=== PATIENT | female | born 1960 | race Caucasian/White ===

== ENCOUNTER 2019-06-05 12:55 | Emergency (ER) | payer OTHER ==
--- NOTE | 2019-06-05 13:53 | RAD REPORT ---
EXAM DESCRIPTION: RAD - Ankle Left 3 View -06/05/2019 1:48 pm CLINICAL HISTORY: Left ankle pain status post injury FINDINGS: No fracture or dislocation is seen. Soft tissue swelling
--- NOTE | 2019-06-05 14:00 | EDPHYS ---
Physician Documentation [facility] Name: Bianca Shrestha Age: 58 yrs Sex: Female : 1960 Arrival Date: 06/05/2019 Time: 12:59 Bed 12 Private MD: None, None ED Physician Joseph Jackson HPI: 06/05 13:57 This 58 yrs old Female presents to ER via Ambulatory with complaints of Ankle pm1 Injury. 13:57 The patient presents with pain, that is acute. The complaints affect the left ankle. pm1 13:57 Onset: The symptoms/episode began/occurred this morning. Context: The problem was pm1 sustained outdoors, resulted from a mis-step by the patient, The mechanism of injury involved inversion of the affected ankle. The patient can fully bear weight on the affected extremity. the patient is able to ambulate. Associated signs and symptoms: The patient has no apparent associated signs or symptoms, Pertinent negatives: calf tenderness, numbness, tingling. Modifying factors: The symptoms are alleviated by nothing, the symptoms are aggravated by weight bearing. Severity of symptoms: in the emergency department the symptoms are actually worse. Historical: - Allergies: 13:24 Sulfa (Sulfonamide Antibiotics); aa5 - PMHx: 13:24 Asthma; Thyroid problem; Hyperlipidemia; Depression; aa5 - PSHx: 13:24 eye; endometrial ablation; tumor removed from abdomen as ; aa5 - Immunization history:: Adult Immunizations unknown. - Social history:: Smoking status: Patient/guardian denies using tobacco. - Ebola Screening: : No symptoms or risks identified at this time. ROS: 13:57 Constitutional: Negative for fever, chills, and weight loss, Neck: Negative for injury, pm1 pain, and swelling, Cardiovascular: Negative for chest pain, palpitations, and edema, Respiratory: Negative for shortness of breath, cough, wheezing, and pleuritic chest pain, Abdomen/GI: Negative for abdominal pain, nausea, vomiting, diarrhea, and constipation, Back: Negative for injury and pain. 13:57 Skin: Negative for injury, rash, and discoloration, Neuro: Negative for headache, weakness, numbness, tingling, and seizure. 13:57 MS/extremity: Positive for pain, of the left lateral ankle, Negative for decreased range of motion, deformity. Exam: 13:57 Constitutional: This is a well developed, well nourished patient who is awake, alert, pm1 and in no acute distress. Head/Face: Normocephalic, atraumatic. Chest/axilla: Normal chest wall appearance and motion. Nontender with no deformity. No lesions are appreciated. Cardiovascular: Regular rate and rhythm with a normal S1 and S2. No gallops, murmurs, or rubs. Normal PMI, no JVD. No pulse deficits. Respiratory: Lungs have equal breath sounds bilaterally, clear to auscultation and percussion. No rales, rhonchi or wheezes noted. No increased work of breathing, no retractions or nasal flaring. Back: No spinal tenderness. No costovertebral tenderness. Full range of motion. Skin: Warm, dry with normal turgor. Normal color with no rashes, no lesions, and no evidence of cellulitis. 13:57 Musculoskeletal/extremity: Extremities: grossly normal except: noted in the left lateral ankle: swelling, tenderness, There is no evidence of decreased ROM, deformity, ecchymosis. 13:57 Neuro: Orientation: is normal, Motor: is normal, moves all fours. Vital Signs: 13:24 BP 136 / 85; Pulse 76; Resp 16 S; Temp 98.9(TE); Pulse Ox 98% on R/A; Weight 79.38 kg aa5 (R); Height 5 ft. 2 in. (157.48 cm) (R); Pain 5/10; 13:24 Body Mass Index 32.01 (79.38 kg, 157.48 cm) aa5 MDM: 13:25 Patient medically screened. pm1 13:58 Data reviewed: vital signs. Counseling: I had a detailed discussion with the patient pm1 and/or guardian regarding: the historical points, exam findings, and any diagnostic results supporting the discharge/admit diagnosis, radiology results, the need for outpatient follow up, to return to the emergency department if symptoms worsen or persist or if there are any questions or concerns that arise at home. 14:00 ED course: Patient offered prescription pain medications. patient refused, will use pm1 ibuprofen or Tylenol at home. 06/05 13:25 Order name: Ankle Left 3 View XRAY; Complete Time: 13:55 pm1 06/05 13:58 Order name: Crutches; Complete Time: 14:21 pm1 06/05 13:58 Order name: Aircast Ankle Splint; Complete Time: 14:21 pm1 Administered Medications: No medications were administered Disposition: 06/05/19 13:59 Discharged to Home. Impression: Pain in left ankle and joints of left foot. - Condition is Stable. - Discharge Instructions: Cast or Splint Care, Adult, Crutch Use, Ankle Pain. - Medication Reconciliation Form, Thank You Letter, Antibiotic Education, Prescription Opioid Use form. - Follow up: Emergency Department; When: As needed; Reason: Worsening of condition. Follow up: Private Physician; When: 2 - 3 days; Reason: Recheck today's complaints, Continuance of care, Re-evaluation by your physician. - Problem is new. - Symptoms have improved. Addendum: 06/06/2019 18:18 Co-signature as Attending Physician, Joseph Jackson MD. g s Signatures: Dispatcher [employer] EDMS Ting Green RN RN aa5 Ole Moss, [employer] DEVELOPER [employer] DEVELOPER pm1 Joseph Jackson MD MD Corrections: (The following items were deleted from the chart) 06/05 14:21 13:59 06/05/2019 13:59 Discharged to Home. Impression: Pain in left ankle and joints of aa5 left foot. Condition is Stable. Forms are Medication Reconciliation Form, Thank You Letter, Antibiotic Education, Prescription Opioid Use. Follow up: Emergency Department; When: As needed; Reason: Worsening of condition. Follow up: Private Physician; When: 2 - 3 days; Reason: Recheck today's complaints, Continuance of care, Re-evaluation by your physician. Problem is new. Symptoms have improved. pm1
--- NOTE | 2019-06-05 14:00 | ER ---
Nurse's Notes [facility] Name: Bianca Shrestha Age: 58 yrs Sex: Female : 1960 Arrival Date: 06/05/2019 Time: 12:59 Bed 12 Private MD: None, None Diagnosis: Pain in left ankle and joints of left foot Presentation: 06/05 13:22 Presenting complaint: Patient states: "I rolled my left ankle this morning". Transition aa5 of care: patient was not received from another setting of care. Onset of symptoms was June 05, 2019. Risk Assessment: Do you want to hurt yourself or someone else? Patient reports no desire to harm self or others. Initial Sepsis Screen: Does the patient meet any 2 criteria? No. Patient's initial sepsis screen is negative. Does the patient have a suspected source of infection? No. Patient's initial sepsis screen is negative. Care prior to arrival: None. 13:22 Method Of Arrival: Ambulatory aa5 13:22 Acuity: SILVIO 4 aa5 Triage Assessment: 13:22 General: Appears uncomfortable, Behavior is calm, cooperative. 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 - Social history:: Smoking status: Patient/guardian denies using tobacco. - Ebola Screening: : No symptoms or risks identified at this time. Screenin:35 Abuse screen: Denies threats or abuse. Nutritional screening: No deficits noted. aa5 Tuberculosis screening: No symptoms or risk factors identified. Fall Risk Fall in past 12 months (25 points). Total Howard Fall Scale indicates Low Risk Score (25-44 pts). Assessment: 13:30 General: Appears uncomfortable, Behavior is calm, cooperative. Pain: Complains of pain aa5 in left ankle. Neuro: Level of Consciousness is awake, alert, obeys commands, Oriented to person, place, time, situation. Cardiovascular: Patient's skin is warm and dry. Respiratory: Airway is patent Respiratory effort is even, unlabored, Respiratory pattern is regular, symmetrical. GI: No signs and/or symptoms were reported involving the gastrointestinal system. : No signs and/or symptoms were reported regarding the genitourinary system. EENT: No signs and/or symptoms were reported regarding the EENT system. Derm: Skin is pink, warm \\T\\ dry. Musculoskeletal: Reports pain in left ankle. 14:15 Reassessment: air cast ankle splint applied to left ankle . aa5 Vital Signs: 13:24 BP 136 / 85; Pulse 76; Resp 16 S; Temp 98.9(TE); Pulse Ox 98% on R/A; Weight 79.38 kg aa5 (R); Height 5 ft. 2 in. (157.48 cm) (R); Pain 5/10; 13:24 Body Mass Index 32.01 (79.38 kg, 157.48 cm) aa5 ED Course: 12:59 Patient arrived in ED. dp 12:59 None, None is Private Physician. dp 13:22 Triage completed. aa5 13:22 Arm band placed on. aa5 13:22 Patient has correct armband on for positive identification. aa5 13:24 Ting Green RN is Primary Nurse. aa5 13:25 Ole Moss NP is PHCP. pm1 13:25 Joseph Jackson MD is Attending Physician. pm1 13:49 Ankle Left 3 View XRAY In Process Unspecified. EDMS 14:15 No provider procedures requiring assistance completed. Patient did not have IV access aa5 during this emergency room visit. Administered Medications: No medications were administered Outcome: 13:59 Discharge ordered by MD. pm1 14:18 Discharged to home ambulatory, with crutches. aa5 14:18 Condition: stable 14:18 Discharge instructions given to patient, Instructed on discharge instructions, follow up and referral plans. Demonstrated understanding of instructions, follow-up care. 14:21 Patient left the ED. aa5 Signatures: Dispatcher [employer] EDMS Ting Green RN RN aa5 Ole Moss NP [employer] pm1 Lj Roman dp
== END 2019-06-05 14:21 | disposition home or self-care (01) ==
LOC: ER 12:55
DX: M25.572 Pain in left ankle and joints of left foot (principal); Z88.2 Allergy status to sulfonamides
CPT/HCPCS: 99283

== ENCOUNTER 2020-02-20 16:35 | Emergency (ER) | payer BC, OTHER ==
[2020-02-20] MEDS ORDERED: METHYLPREDNISOLONE 125 MG INJ ONE (17:10)
--- NOTE | 2020-02-20 17:49 | RAD REPORT ---
EXAM DESCRIPTION: Kaycee Single View02/20/2020 5:14 pm CLINICAL HISTORY: cough COMPARISON: none FINDINGS: The lungs appear clear of acute infiltrate. The heart is normal size IMPRESSION: No acute abnormalities displayed
--- NOTE | 2020-02-20 18:34 | EDPHYS ---
Physician Documentation [facility] Name: Bianca Shrestha Age: 59 yrs Sex: Female : 1960 Arrival Date: 02/20/2020 Time: 16:38 Bed 16 Private MD: ED Physician Gray Drake HPI: 02/19 17:03 This 59 yrs old Female presents to ER via Ambulatory with complaints of rn Cough, Fever. 17:03 The patient or guardian reports cough. Onset: The symptoms/episode began/occurred 3 rn week(s) ago. Severity of symptoms: At their worst the symptoms were moderate, in the emergency department the symptoms are unchanged. Modifying factors: The symptoms are alleviated by inhaler, the symptoms are aggravated by exertion. Associated signs and symptoms: Pertinent positives: fever, rhinorrhea, Pertinent negatives: chest pain, vomiting. The patient has experienced similar episodes in the past. Reports has asthma, has been coughing for 3 weeks, slowly getting worse, no hemoptysis, did telemedicine appt and told her probably had bronchitis. Reports similar to previous asthma attacks but lasting longer. Helps with inhaler but then coughs and is short of breath again.. 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 - Social history:: Smoking status: Patient denies any tobacco usage or history of. - Family history:: not pertinent. - Hospitalizations: : No recent hospitalization is reported. ROS: 17:03 Constitutional: + fever Eyes: Negative for injury, pain, redness, and discharge, ENT: + rn post-nasal drip Neck: Negative for injury, pain, and swelling, Cardiovascular: Negative for chest pain, palpitations, and edema, Respiratory: + cough and sob Abdomen/GI: Negative for abdominal pain, nausea, vomiting, diarrhea, and constipation, MS/Extremity: Negative for injury and deformity, Neuro: Negative for headache, numbness, tingling, and seizure. Exam: 17:03 Constitutional: This is a well developed, well nourished patient who is awake, alert, rn dry cough Head/Face: Normocephalic, atraumatic. Cardiovascular: Regular rate and rhythm Respiratory: Speaking full sentences, + audible wheezing with persistent cough, no retractions or tripod breathing Skin: Dry Neuro: Awake and alert, GCS 15 Vital Signs: 17:00 BP 144 / 74; Pulse 78; Resp 19 S; Pulse Ox 96% on R/A; jl7 17:41 Temp 100.3; jl7 18:30 BP 134 / 73; Pulse 75; Resp 18 S; Pulse Ox 97% on R/A; jl7 MDM: 16:49 Patient medically screened. rn 17:03 Differential Diagnosis: Bronchitis Influenza Upper Respiratory Infection Asthma rn Exacerbation Viral Syndrome Pneumonia. Data reviewed: vital signs, nurses notes. 17:54 Counseling: I had a detailed discussion with the patient and/or guardian regarding: the rn historical points, exam findings, and any diagnostic results supporting the discharge/admit diagnosis, radiology results, to return to the emergency department if symptoms worsen or persist or if there are any questions or concerns that arise at home. Response to treatment: the patient's symptoms have mildly improved after treatment, and as a result, I will discharge patient. Special discussion: I discussed with the patient/guardian in detail that at this point there is no indication for admission to the hospital. It is understood, however, that if the symptoms persist or worsen the patient needs to return immediately for re-evaluation. ED course: Pt with normal CXR, low grade fever and cough, most likely a viral syndrome, possible COVID-19, does not have to be hospitalized right now, no oxygen requirement, will dc home with steroids, continued inhaler use, and zithromax for bronchitis given 3 week worsening course. . 02/19 17:02 Order name: Flu; Complete Time: 18:26 rn 02/19 17:11 Order name: Misc. Lab Test rn 02/19 17:02 Order name: XRAY Chest (1 view); Complete Time: 17:53 rn 02/19 17:52 Order name: CORONAVIRUS EDMS Administered Medications: 17:30 Drug: SOLU-Medrol 125 mg Route: IM; Site: left ventrogluteal; jl7 18:00 Follow up: Response: No adverse reaction [facility] 18:45 Drug: Zithromax 500 mg Route: PO; 18:49 Follow up: Response: Medication administered at discharge. [facility] Disposition: 02/20/20 18:34 Discharged to Home. Impression: Unspecified asthma with (acute) exacerbation, Bronchitis, not specified as acute or chronic. - Condition is Stable. - Discharge Instructions: Acute Bronchitis, Adult, Asthma, Adult, Cough, Adult. - Prescriptions for Prednisone 20 mg Oral Tablet - take 3 tablet by ORAL route once daily for 5 days; 15 tablet. Zithromax Z- Rosalio 250 mg Oral Tablet - take 1 tablet by ORAL route as directed for 5 days Day 1 - take two (2) tablets one time. Day 2, 3, 4 , 5 take one (1) tablet once daily.; 6 tablet. Guaifenesin AC 10- 100 mg/5 mL Oral Liquid - take 10 milliliter by ORAL route every 4 hours As needed; 240 milliliter. - Medication Reconciliation Form, Thank You Letter, Antibiotic Education, Prescription Opioid Use form. - Follow up: Private Physician; When: As needed; Reason: Recheck today's complaints, Re-evaluation by your physician. - Problem is an ongoing problem. - Symptoms have improved. Signatures: Dispatcher [employer] [facility] Gray Drake MD MD rn Leal, Jahala, RN RN jl7 Corrections: (The following items were deleted from the chart) 17:52 17:12 Miscellaneous Test Lab ordered. [facility] 18:51 18:34 02/20/2020 18:34 Discharged to Home. Impression: Unspecified asthma with (acute) jl exacerbation; Bronchitis, not specified as acute or chronic. Condition is Stable. Discharge Instructions: Acute Bronchitis, Adult, Asthma, Adult, Cough, Adult. Prescriptions for Prednisone 20 mg Oral Tablet - take 3 tablet by ORAL route once daily for 5 days; 15 tablet, Zithromax Z-Rosalio 250 mg Oral Tablet - take 1 tablet by ORAL route as directed for 5 days Day 1 - take two (2) tablets one time. Day 2, 3, 4 , 5 take one (1) tablet once daily.; 6 tablet, Guaifenesin AC 10-100 mg/5 mL Oral Liquid - take 10 milliliter by ORAL route every 4 hours As needed; 240 milliliter. and Forms are Medication Reconciliation Form, Thank You Letter, Antibiotic Education, Prescription Opioid Use. Follow up: Private Physician; When: As needed; Reason: Recheck today's complaints, Re-evaluation by your physician. Problem is an ongoing problem. Symptoms have improved. rn
--- NOTE | 2020-02-20 18:34 | ER ---
Nurse's Notes [facility] Name: Bianca Shrestha Age: 59 yrs Sex: Female : 1960 Arrival Date: 02/20/2020 Time: 16:38 Bed 16 Private MD: Diagnosis: Unspecified asthma with (acute) exacerbation;Bronchitis, not specified as acute or chronic Presentation: 02/19 16:51 Chief complaint: Patient states: Cough and 99.5 temp x 3 weeks, MD live told her to [facility] come to ER because she might have bronchitis. Coronavirus screen: Surgical mask placed on patient. Patient moved to private room, placed in contact and droplet isolation with eye protection until further assessment. Patient reports a cough. Patient reports shortness of breath or difficulty breathing. Patient reports a measured and/or subjective temperature greater than 100.4F. Patient denies travel on a cruise ship or to a country the [facility] currently lists as an affected area. Patient denies contact with known and/or suspected case of COVID-19. Ebola Screen: No symptoms or risks identified at this time. Initial Sepsis Screen: Does the patient meet any 2 criteria? No. Patient's initial sepsis screen is negative. Does the patient have a suspected source of infection? No. Patient's initial sepsis screen is negative. Risk Assessment: Do you want to hurt yourself or someone else? Patient reports no desire to harm self or others. Onset of symptoms was January 30, 2020. Care prior to arrival: None. 16:51 Method Of Arrival: Ambulatory [facility] 16:51 Acuity: SILVIO 4 jl7 Triage Assessment: 16:57 General: Appears in no apparent distress. uncomfortable, Behavior is calm, cooperative, jl7 appropriate for age. Pain: Denies pain. Neuro: Level of Consciousness is awake, alert, obeys commands, Oriented to person, place, time, situation. Cardiovascular: Patient's skin is warm and dry. Respiratory: Reports shortness of breath at rest cough that is non-productive, Airway is patent Respiratory effort is even, unlabored, Respiratory pattern is regular, symmetrical. Derm: Skin is pink, warm \T\ dry. Historical: - Allergies: 16:57 Sulfa (Sulfonamide Antibiotics); jl7 - Home Meds: 16:57 levothyroxine oral [Active]; Bupropion Oral [Active]; Crestor oral oral [Active]; jl7 Albuterol Inhl [Active]; - PMHx: 16:57 Asthma; Depression; Hyperlipidemia; Thyroid problem; jl7 - PSHx: 16:57 eye; endometrial ablation; tumor removed from abdomen as ; jl7 - Immunization history:: Adult Immunizations. - Social history:: Smoking status: Patient denies any tobacco usage or history of. - Family history:: not pertinent. - Hospitalizations: : No recent hospitalization is reported. Screenin:00 Abuse screen: Denies threats or abuse. Denies injuries from another. Nutritional jl7 screening: No deficits noted. Tuberculosis screening: No symptoms or risk factors identified. 17:41 Fall Risk None identified. jl7 Assessment: 17:00 General: See triage assessment. jl7 02/20 09:19 Reassessment: Received PUI # from [facility] ([id number]). iw Vital Signs: 02/19 17:00 BP 144 / 74; Pulse 78; Resp 19 S; Pulse Ox 96% on R/A; jl7 17:41 Temp 100.3; jl7 18:30 BP 134 / 73; Pulse 75; Resp 18 S; Pulse Ox 97% on R/A; jl7 ED Course: 16:38 Patient arrived in ED. ag5 16:43 Alexsander Cintron, RN is Primary Nurse. jl7 16:49 Gray Drake MD is Attending Physician. rn 16:54 Triage completed. jl7 16:57 Arm band placed on right wrist. jl7 17:00 Patient has correct armband on for positive identification. Placed in gown. Bed in low jl7 position. Call light in reach. Side rails up X 1. 17:00 Pulse ox on. NIBP on. jl7 17:14 XRAY Chest (1 view) In Process Unspecified. EDMS 17:30 Flu and/or RSV swab sent to lab. COVID-19 swab wallk to lab. jl7 18:50 No provider procedures requiring assistance completed. Patient did not have IV access jl7 during this emergency room visit. Administered Medications: 17:30 Drug: SOLU-Medrol 125 mg Route: IM; Site: left ventrogluteal; jl7 18:00 Follow up: Response: No adverse reaction jl7 18:45 Drug: Zithromax 500 mg Route: PO; jl7 18:49 Follow up: Response: Medication administered at discharge. jl7 Outcome: 18:34 Discharge ordered by . rn 18:50 Discharged to home ambulatory. 7 18:50 Condition: stable 18:50 Discharge instructions given to patient, Instructed on discharge instructions, follow up and referral plans. medication usage, Demonstrated understanding of instructions, follow-up care, medications, Prescriptions given X 3. 18:51 Patient left the ED. jl7 Addendum: 02/23/2020 17:43 Addendum: Other Contacted pt regarding negative COVID-19 swab results. Pt advised to d m5 continue to monitor symptoms, to remain in isolation until fever free for 3 days or 7 days for the onset of symptoms and to return to the ED for worsening symptoms. Signatures: Dispatcher [employer] EDMS Tracie Ogden, RN RN dm5 Matilda Burch RN Gray Coffey MD MD rn Leal, Jahala, RN RN jl7 Krissy Michaels 5
[2020-02-20] MEDS ORDERED: AZITHROMYCIN 250 MG TAB ONE (18:43)
[2020-02-20 18:57] VITALS: TEMP 100.3
[2020-02-20 18:58] VITALS: BP 134/73; O2SAT 97
== END 2020-02-20 18:51 | disposition home or self-care (01) ==
LOC: ER 16:35
DX: J45.901 Unspecified asthma with (acute) exacerbation (principal); J40 Bronchitis, not specified as acute or chronic; Z03.818 Encounter for observation for suspected exposure to other biological agents ruled out; Z88.2 Allergy status to sulfonamides; E07.9 Disorder of thyroid, unspecified; E78.5 Hyperlipidemia, unspecified
CPT/HCPCS: 87804 ×2; 71045; 96372; 99284; U0001; J2930